=== PATIENT | male | born 1970 | race Caucasian/White ===

== ENCOUNTER 2019-10-15 07:08 | Emergency (ER) | payer OTHER ==
[~2019-10-15] VITALS: Ht 177.8 cm; Wt 145.2 kg
[2019-10-15 08:17] LABS: CALCIUM 9.1 mg/dL (8.5-10.1); CREATININE 0.9 mg/dL (0.7-1.3); POTASSIUM 4.3 mmol/L (3.5-5.1)
[2019-10-15 08:23] LABS: ALBUMIN 3.5 g/dL (3.4-5.0); TOTAL BILIRUBIN 0.8 mg/dL (<0.1-1.0); TOTAL PROTEIN 7.5 g/dL (6.4-8.2)
[2019-10-15 08:44] LABS: ABSOLUTE NEUTROPHILS 6.3 thou/uL (1.4-8.2); BASOPHILS 1.1 % (0.0-2.0); EOSINOPHILS 3.6 % (0.0-3.0); HEMATOCRIT 43.9 % (42.0-52.0); LYMPHOCYTES 18.5 % (24.0-44.0); MCHC 34.1 g/dL (28.0-37.0); MCV 96.9 fL (80.0-100.0); MONOCYTES 8.1 % (1.0-8.0); PLATELET COUNT 107 thou/uL (150-400); POLYS 68.7 % (36.0-66.0); RBC 4.53 mil/uL (4.50-6.00); RDW 13.3 % (10.5-14.5); WBC 9.2 thou/uL (4.0-11.0)
[2019-10-15] MEDS ORDERED: NORCO 5-325 TA1 EAC1 PO (09:30)
[2019-10-15 10:12] VITALS: BP 161/80
== END 2019-10-15 10:05 | disposition home or self-care (01) ==
LOC: ER 07:08
PROVIDERS: Emergency Medicine
DX: K04.7 Periapical abscess without sinus (principal); I10 Essential (primary) hypertension; J45.909 Unspecified asthma, uncomplicated; F17.210 Nicotine dependence, cigarettes, uncomplicated; Z88.1 Allergy status to other antibiotic agents

== ENCOUNTER 2020-08-24 05:59 | Inpatient (IN) | payer OTHER ==
[~2020-08-24] VITALS: Ht 177.8 cm; Wt 153.8 kg
[~2020-08-24 05:59] MED LIST: NORCO 5-325 TA1 EAC1 PO
[2020-08-24 06:19] VITALS: BP 156/84
[2020-08-24] MEDS ORDERED: TORSEMIDE20 MG (06:46)
[2020-08-24] MEDS ORDERED: COZAAR 25 MG TA25 M1 (06:47)
[2020-08-24] MEDS ORDERED: ATORVASTATIN CA20 MG (06:47)
[2020-08-24] MEDS ORDERED: B COMPLEX1 EACH (06:48)
[2020-08-24 07:13] LABS: ABSOLUTE NEUTROPHILS 3.7 thou/uL (1.4-8.2); EOSINOPHILS 1.9 % (0.0-3.0); HEMATOCRIT 47.5 % (42.0-52.0); HEMOGLOBIN 15.7 gm/dL (14.0-18.0); LYMPHOCYTES 23.5 % (24.0-44.0); MCH 34.8 pg (26.0-34.0); MCHC 33.1 g/dL (28.0-37.0); MCV 105.2 fL (80.0-100.0); MONOCYTES 7.7 % (1.0-8.0); POLYS 65.9 % (36.0-66.0); RBC 4.51 mil/uL (4.50-6.00); RDW 16.3 % (10.5-14.5); WBC 5.5 thou/uL (4.0-11.0)
[2020-08-24 07:18] LABS: CALCIUM 8.9 mg/dL (8.5-10.1); CREATININE 1.1 mg/dL (0.7-1.3); POTASSIUM 4.9 mmol/L (3.5-5.1)
[2020-08-24 07:20] LABS: APTT 26.9 Seconds (24.5-32.8); INR 1.3; PROTIME 13.4 Seconds (9.3-11.4)
[2020-08-24 07:30] LABS: ALBUMIN 3.4 g/dL (3.4-5.0); MAGNESIUM 2.1 mg/dL (1.8-2.4); TOTAL BILIRUBIN 0.5 mg/dL (0.2-1.0); TOTAL PROTEIN 6.9 g/dL (6.4-8.2); TROPONIN-I 0.11 ng/mL (<0.06)
[2020-08-24 08:40] LABS: ANISOCYTOSIS SLIGHT; MACROCYTES 1+; POLYCHROMASIA SLIGHT
[2020-08-24 08:41] LABS: PLATELET COUNT 134 thou/uL (150-400); PLATELET ESTIMATE NORMAL
--- NOTE | 2020-08-24 12:28 | EKG ---
[facility] [place] [address] ELECTROCARDIOGRAM REPORT Name: LANCE GRANADOS Room #: 170-8 ADM IN M.R.#: [id number] Admission: 08/24/20 Attend Phys: Sae Belle MD Discharge: Date of : 74 Report #: [id number] THIS REPORT FOR: cc: Steven Vance Theodore M. DO Santiago, Patrick MD [facility] ~ THIS REPORT FOR: //name// [facility] ED Test Date: 2020-08-24 Test Time: 10:42:12 Pat Name: LANCE GRANADOS Department: Room: 170 Gender: M Telemarketer: aruna : 1970 Requested By: Nick Sommer Order Number: [id number] MD: Milton Maher Measurements Intervals [place] Rate: 75 P: 37 [place]: 170 QRS: 25 QRSD: 87 T: -77 QT: 369 QTc: 413 Interpretive Statements Sinus rhythm Nonspecific T abnormalities, inferior leads No previous ECG available for comparison Electronically Signed On 08-24-2020 12:28:08 DISPATCHER RADIOACTIVE WASTE DISPOSAL by Milton Maher [email or web address] <ELECTRONICALLY SIGNED> By: Milton Maher MD, FACC 08/24/20 1228 1042 1042 Milton Maher MD, [facility] /EPI
--- NOTE | 2020-08-24 13:16 | 2DMMODE ---
[facility] [place] [address] 2 D/M-MODE ECHOCARDIOGRAM Name: LANCE GRANADOS Room #: 170-8 ADM IN M.R.#: [id number] Admission: 08/24/20 Attend Phys: Sae Belle MD Discharge: Date of : 74 Report #: [id number] THIS REPORT FOR: cc: Steven Vacne Theodore M. DO Lammoglia, Francisco J. MD ~ APPROVED REPORT Study performed: 08/24/2020 12:45:05 EXAM: Comprehensive 2D, Doppler, and color-flow Echocardiogram Patient Location: ER Status: routine BSA: 2.66 HR: 80 bpm BP: 145/62 mmHg Rhythm: NSR Other Information Study Quality: Adequate Technically limited study due to morbid obesity. Indications Swelling, short of breath, CHF. Hx: HTN, morbid obesity, tobacco/ETOH abuse. 2D Dimensions RVDd: 45.38 mm IVSd: 14.94 (7-11mm) LVOT Diam: 21.79 (18-24mm) LVDd: 50.36 mm PWd: 15.03 (7-11mm) Ascending Ao: 36.67 (22-36mm) LVDs: 33.89 (25-40mm) Aortic Root: 37.04 mm Volumes Left Atrial Volume (Systole) Single Plane 4CH: 44.92 mL Single Plane 2CH: 68.17 mL LA ESV Index: 23.00 mL/m2 Aortic Valve AoV Peak Kei.: 1.98 m/s AO Peak Gr.: 15.61 mmHg LVOT Max P.57 mmHg [facility] [address] [place] [address] 2 D/M-MODE ECHOCARDIOGRAM Name: LANCE GRANADOS Room #: 170-8 [facility] IN [facility].#: [id number] Admission: 08/24/20 Attend Phys: Carolina Kearney Discharge: Date of : 74 Report #: [id number] LVOT Max V: 1.18 m/s FERNANDO Vmax: 2.23 cm2 Mitral Valve E/A Ratio: 1.3 MV Decel. Time: 247.96 ms MV E Max Kei.: 1.16 m/s MV A Kei.: 0.88 m/s MV PHT: 71.91 ms IVRT: 72.66 ms Pulmonary Valve PV Peak Kei.: 1.35 m/s PV Peak Gr.: 7.26 mmHg Pulmonary Vein P Vein S: 0.47 m/s P Vein D: 0.34 m/s P Vein S/D Ratio: 1.38 Tricuspid Valve TR Peak Kei.: 2.92 m/s RAP Estimate: 15.00 mmHg TR Peak Gr.: 34.03 mmHg PA Pressure: 49.00 mmHg Left Ventricle The left ventricle is normal size. There is normal LV segmental wall motion. Moderate concentric left ventricular hypertrophy. Left ventricular systolic function is normal. LVEF is 60-65%. The left ventricular diastolic function is normal. Right Ventricle Right ventricle is mild to moderately dilated. The right ventricular systolic function is normal. Atria The left atrium size is normal. Right atrium is moderately dilated. Aortic Valve The aortic valve is normal in structure. No aortic regurgitation is present. There is no aortic valvular stenosis. Mitral Valve The mitral valve is normal in structure. There is no mitral valve regurgitation noted. No evidence of mitral valve stenosis. [facility] [address] [place] [address] 2 D/M-MODE ECHOCARDIOGRAM Name: ROBERTA Room #: 170-8 ADM IN M.R.#: [id number] Admission: 08/24/20 Attend Phys: Carolina Kearney Discharge: Date of : 74 Report #: [id number] Tricuspid Valve The tricuspid valve is normal in structure. Mild tricuspid regurgitation. Estimated PAP is 45-50mmHg. Pulmonic Valve The pulmonary valve is normal in structure. Mild pulmonic regurgitation. Great Vessels The aortic root is normal in size. The ascending aorta is normal in size. IVC is dilated and collapses <50% with inspiration. Pericardium There is no pericardial effusion. <Conclusion> The left ventricle is normal size. LVEF is 60-65%. Right ventricle is mild to moderately dilated. The aortic valve is normal in structure. The mitral valve is normal in structure. The tricuspid valve is normal in structure. Mild tricuspid regurgitation. Estimated PAP is 45-50mmHg. The pulmonary valve is normal in structure. Mild pulmonic regurgitation. There is no pericardial effusion. <ELECTRONICALLY SIGNED> By: Onofre Alvarez MD 08/24/20 1316 1316 131 Onofre Alvarez MD /INF
[2020-08-24 19:11] LABS: ALBUMIN 3.4 g/dL (3.4-5.0); DIRECT BILIRUBIN 0.2 mg/dL (<0.1-0.2); TOTAL BILIRUBIN 0.8 mg/dL (0.2-1.0); TOTAL PROTEIN 7.1 g/dL (6.4-8.2)
[2020-08-24 20:37] VITALS: BP 127/67
[2020-08-24 20:41] VITALS: BP 127/67
[2020-08-24 21:15] VITALS: BP 138/67
[2020-08-24 22:06] LABS: AMP/METHAMP Negative (Negative); BARBITURATES Negative (Negative); BENZODIAZEPINES Negative (Negative); COCAINE Negative (Negative); METHADONE Negative (Negative); OPIATES Negative (Negative); PCP Negative (Negative)
[2020-08-25 00:25] VITALS: BP 147/74
[2020-08-25 04:07] LABS: CALCIUM 9.3 mg/dL (8.5-10.1); CREATININE 1.2 mg/dL (0.7-1.3); POTASSIUM 4.1 mmol/L (3.5-5.1)
[2020-08-25 04:44] VITALS: BP 124/85
[2020-08-25 08:00] VITALS: BP 123/87
[2020-08-25 12:07] VITALS: BP 155/71
[2020-08-25 16:12] VITALS: BP 116/59
[2020-08-25 21:00] VITALS: BP 149/61
[2020-08-26 04:44] LABS: ALBUMIN 3.2 g/dL (3.4-5.0); CALCIUM 9.4 mg/dL (8.5-10.1); CREATININE 1.2 mg/dL (0.7-1.3); MAGNESIUM 2.1 mg/dL (1.8-2.4); PHOSPHORUS 4.5 mg/dL (2.5-4.9); POTASSIUM 4.1 mmol/L (3.5-5.1); TOTAL BILIRUBIN 0.7 mg/dL (0.2-1.0); TOTAL PROTEIN 7.1 g/dL (6.4-8.2)
[2020-08-26 04:50] VITALS: BP 115/68
[2020-08-26 05:04] LABS: ABSOLUTE NEUTROPHILS 3.1 thou/uL (1.4-8.2); BASOPHILS 0.8 % (0.0-2.0); HEMATOCRIT 48.6 % (42.0-52.0); HEMOGLOBIN 16.3 gm/dL (14.0-18.0); LYMPHOCYTES 26.7 % (24.0-44.0); MCH 34.8 pg (26.0-34.0); MCHC 33.6 g/dL (28.0-37.0); MCV 103.5 fL (80.0-100.0); MONOCYTES 7.4 % (1.0-8.0); PLATELET COUNT 122 thou/uL (150-400); POLYS 60.1 % (36.0-66.0); RBC 4.69 mil/uL (4.50-6.00); RDW 15.7 % (10.5-14.5); WBC 5.2 thou/uL (4.0-11.0)
[2020-08-26 07:43] VITALS: BP 149/67
--- NOTE | 2020-08-26 10:05 | HC ---
[facility] [place] [address] CONSULTATION Name: LANCE GRANADOS Room #: 213-P ADM IN M.R.#: [id number] Admission: 08/24/20 Attend Phys: Sae Belle MD Discharge: Date of : 74 Report #: [id number] THIS REPORT FOR: cc: Steven Vance Theodore M. DO Lundgren, Craig H. MD [facility] ~ DATE OF SERVICE: 08/25/2020 REASON FOR CONSULTATION: Shortness of breath, edema. HISTORY OF PRESENT ILLNESS: The patient is a 49-year-old gentleman with asthma near lifelong smoking, history of hypertension, obesity and sleep apnea, intolerant to CPAP. He now presents with increasing lower extremity edema, abdominal bloating, and exertional breathlessness. He does report being off of medicines probably for 4 or 5 days a week or 2 ago. His swelling became substantially worse over this period of time. He works as a chef kitchen manager and frequently tastes his food and admits that his diet has to be very high in salt. He denies orthopnea or paroxysmal nocturnal dyspnea. He was diagnosed with sleep apnea several years ago, although has been intolerant to his facemask. He never has seen a sample examiner or sleep specialist. He has smoked 2 packages of cigarettes for many years down to about a half package of cigarettes daily. He admits to significant alcohol use. HOME MEDICINES: Include torsemide, atorvastatin, and losartan 25 mg daily. ALLERGIES: He is allergic to ERYTHROMYCIN. PAST HISTORY: Medical records have been reviewed and includes a history of hypertension, sleep apnea, asthma, and COPD. SOCIAL HISTORY: He is a smoker and drinker. He is . 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 FAMILY HISTORY: Unremarkable for premature coronary artery disease. REVIEW OF SYSTEMS: All systems negative except as that noted above. PHYSICAL EXAMINATION: GENERAL: He is a pleasant gentleman who is alert, in no distress. VITAL SIGNS: Blood pressure is 124/80, heart rate of 80 and regular. He is afebrile. He is 5 feet 10 inches tall, 380 pounds. His "dry weight" is probably around 340 pounds. HEENT: There are neither xanthelasma, subcutaneous xanthomata, oral mucosa, digital cyanosis or kyphoscoliosis present. [facility] [address] [place] [address] CONSULTATION Name: LANCE GRANADOS Room #: [address] [place] [address] IN M.R.#: [id number] Admission: 08/24/20 Attend Phys: Sae Belle MD Discharge: Date of : 74 Report #: [id number] CHEST: Clear to auscultation and percussion. CARDIAC: Distant regular rate and rhythm with normal S1, S2. ABDOMEN: Soft, morbidly obese and nontender. EXTREMITIES: Reveal 2+ pedal edema. Radial pulses are 2+. NEUROLOGICAL: He is alert with a nonfocal exam. LABORATORY DATA: Sodium 139, potassium 4.1, creatinine 1.2. ProBNP of 1386. Troponin 0.09. Tox screen notable for THC. White count 5.5, hemoglobin 15, hematocrit 47, platelet count 134. Thyroid function studies are normal. COVID-19 is negative. Chest x-ray: Cardiomegaly with mild interstitial edema. Venous Doppler is negative for deep venous thrombosis. IMPRESSION: 1. Diastolic heart failure. 2. Chronic obstructive pulmonary disease, asthma; moderate pulmonary hypertension. 3. Probable severe sleep apnea, untreated. 4. Hypertension. 5. Dyslipidemia. 6. Morbid obesity. 7. Alcohol dependency. 8. Tobacco dependency. RECOMMENDATIONS: 1. IV Lasix. 2. Volume overload is multifactorial, but I believe predominantly related to severe untreated sleep apnea, COPD with pulmonary hypertension. Echocardiography has been reviewed and demonstrates normal left ventricular systolic function without significant valvular heart disease. 3. Smoking cessation encouraged, moderation in alcohol intake recommended. 4. Dietary salt restriction recommended. Thank you for asking me to participate in the patient's care. <ELECTRONICALLY SIGNED> By: Roderick Moffett MD, FACC 08/26/20 1005 1128 0044 Roderick Moffett MD, FACC /nt
[2020-08-26 11:44] VITALS: BP 132/62
[2020-08-26 16:40] VITALS: BP 137/66
[2020-08-26 20:34] VITALS: BP 108/58
[2020-08-27 05:50] LABS: CALCIUM 10.1 mg/dL (8.5-10.1); CREATININE 1.3 mg/dL (0.7-1.3); POTASSIUM 4.3 mmol/L (3.5-5.1)
[2020-08-27 07:32] VITALS: BP 146/66
[2020-08-27 08:47] LABS: ABSOLUTE NEUTROPHILS 3.1 thou/uL (1.4-8.2); BASOPHILS 1.1 % (0.0-2.0); EOSINOPHILS 5.6 % (0.0-3.0); HEMATOCRIT 51.2 % (42.0-52.0); HEMOGLOBIN 16.9 gm/dL (14.0-18.0); MCH 34.6 pg (26.0-34.0); MCV 104.6 fL (80.0-100.0); MONOCYTES 7.6 % (1.0-8.0); POLYS 57.7 % (36.0-66.0); RBC 4.89 mil/uL (4.50-6.00); RDW 16.2 % (10.5-14.5); WBC 5.4 thou/uL (4.0-11.0)
[2020-08-27 08:48] LABS: PLATELET COUNT 134 thou/uL (150-400)
[2020-08-27 17:20] VITALS: BP 116/72
[2020-08-27 19:43] VITALS: BP 116/75
[2020-08-28 05:01] VITALS: BP 144/87
[2020-08-28 08:09] VITALS: BP 127/73
[2020-08-28 19:57] VITALS: BP 146/70
[2020-08-29 08:17] VITALS: BP 145/68
[2020-08-29] MEDS ORDERED: CLOTRIMAZOLE-BE15 GM TOP (10:19)
[2020-08-29] MEDS ORDERED: DEMADEX20 MG PO (10:19)
[2020-08-29] MEDS ORDERED: BACTRIM DS TAB1 EAC1 PO (10:19)
[2020-08-29 10:34] VITALS: BP 145/68
== END 2020-08-29 12:19 | disposition home or self-care (01) | DRG 280 ==
LOC: ER 05:59 → EROBS 12:04 → 4W 12:04 → 2N 12:04 → 4W 08-27
PROVIDERS: Emergency Medicine; Internal Medicine; ADMIT Hospitalist; ATTEND Hospitalist
PROC: 5A09357 Assistance with Respiratory Ventilation, Less than 24 Consecutive Hours, Continuous Positive Airway Pressure (ICD-10-PCS; principal; 2020-08-25)
DX: I11.0 Hypertensive heart disease with heart failure (principal); J96.01 Acute respiratory failure with hypoxia; I21.A1 Myocardial infarction type 2; Z68.42 Body mass index [BMI] 45.0-49.9, adult; L03.311 Cellulitis of abdominal wall; I50.33 Acute on chronic diastolic (congestive) heart failure; F17.210 Nicotine dependence, cigarettes, uncomplicated; G47.33 Obstructive sleep apnea (adult) (pediatric); F10.20 Alcohol dependence, uncomplicated; Y90.9 Presence of alcohol in blood, level not specified; E78.5 Hyperlipidemia, unspecified; J44.9 Chronic obstructive pulmonary disease, unspecified; D69.6 Thrombocytopenia, unspecified; I27.20 Pulmonary hypertension, unspecified; E66.01 Morbid (severe) obesity due to excess calories; Z20.828 Contact with and (suspected) exposure to other viral communicable diseases; Z79.899 Other long term (current) drug therapy; Z91.048 Other nonmedicinal substance allergy status
CPT/HCPCS: 10040; 10081; 10194

== ENCOUNTER → 2020-10-03 | Outpatient (CLI) | payer OTHER ==
[~2020-10-03] MED LIST changes: +ATORVASTATIN CA20 MG; +B COMPLEX1 EACH; +BACTRIM DS TAB1 EAC1 PO; +CLOTRIMAZOLE-BE15 GM TOP; +COZAAR 25 MG TA25 M1; +DEMADEX20 MG PO; +TORSEMIDE20 MG
== END ==
LOC: RAD 13:16
PROVIDERS: ATTEND Pediatrics
DX: R06.02 Shortness of breath (principal); I70.0 Atherosclerosis of aorta